=== PATIENT | male | born 1950 | race Caucasian/White ===

== ENCOUNTER 2021-11-03 11:06 | Inpatient (IN) ==
[2021-11-03 11:49] LABS: Hemoglobin 17.1 g/dL (12.9-16.9); Mean Corpuscular HGB Conc 33.5 g/dL (31.6-35.5); Mean Corpuscular Hemoglobin 30.6 pg (28.0-33.3); Mean Corpuscular Volume 91.4 fL (83.0-100.0); Platelet Count 186 K/mcL (140-400); Red Blood Count 5.58 M/mcL (4.19-5.50)
[2021-11-03 11:57] LABS: INR 1.1; Prothrombin Time 12.7 Seconds (9.4-12.1)
[2021-11-03 11:59] LABS: Activated Partial Thrombo Time 32.9 Seconds (26.0-36.0)
[2021-11-03 12:03] LABS: Acetaminophen < 10 mcg/mL (10-20); Alanine Aminotransferase 22 Units/L (7-52); Albumin 4.2 g/dL (3.5-5.7); Albumin/Globulin Ratio 1.8 (1.1-2.2); Alkaline Phosphatase 61 Units/L (34-104); Aspartate Amino Transferase 29 Units/L (13-39); BUN/Creatinine Ratio 15 (6-26); Bilirubin,Direct 0.4 mg/dL (0.0-0.2); Bilirubin,Indirect 1.3 mg/dL (0.0-1.0); Bilirubin,Total 1.7 mg/dL (0.3-1.0); Blood Urea Nitrogen 16 mg/dL (8-23); Calcium 9.7 mg/dL (8.6-10.3); Carbon Dioxide 26 mEq/L (23-29); Chloride 98 mEq/L (98-107); Ethanol < 10 mg/dL (Less than 10); Globulin 2.4 g/dL (2.4-3.5); Glucose 87 mg/dL (70-105); Osmolality,Calculated 281 (280-300); Potassium 3.4 mEq/L (3.5-5.1); Salicylate < 2.5 mg/dL (15.0-30.0); Sodium 135 mEq/L (136-145); Total Protein 6.6 g/dL (6.4-8.9); eGFR For African Americans > 60 (> 60); eGFR For Non-African Americans > 60 (> 60)
[2021-11-03 12:10] LABS: Bilirubin,Urine Negative (Negative); Blood,Urine Negative (Negative); Clarity,Urine Turbid (Clear); Color,Urine Yellow (Yellow); Glucose,Urine (UA) Normal (Normal); Hyaline Casts,Urine Many per lpf (None Seen); Ketones,Urine Trace mg/dL (Negative); Leukocyte Esterase,Urine Negative (Negative); Mucus,Urine Moderate per lpf (None-Few); Nitrite,Urine Negative (Negative); PH,Urine 5.5 pH Units (5.0-8.0); Protein,Urine 30 mg/dL (Neg-Trace); RBC,Urine 0-3 per hpf (0-3); Specific Gravity,Urine 1.024 (1.010-1.025); Squamous Epithelial Cell,Urine Few per hpf (None-Few)
[2021-11-03 12:15] LABS: Reactive Lymphocytes Present (Not Present)
[2021-11-03 12:16] LABS: Platelet Estimate Normal (Normal); Smudge Cells Present (Not Present)
[2021-11-03 12:36] LABS: Amphetamine Screen,Urine Negative ng/mL (Cutoff=1000); Barbiturate Screen,Urine Negative ng/mL (Cutoff=200); Benzodiazepines Screen,Urine Negative ng/mL (Cutoff=200); Cannabinoid Screen,Urine Negative ng/mL (Cutoff = 50); Cocaine Screen,Urine Negative ng/mL (Cutoff= 300); Opiate Screen,Urine Negative ng/mL (Cutoff=300); Phencyclidine Screen,Urine Negative ng/mL (Cutoff=25)
[2021-11-03] MEDS ORDERED: Naloxone 0.4 MG/ML INJ IVP PRN (17:41)
[2021-11-03] MEDS ORDERED: Ondansetron ODT 4 MG TAB.RAPDIS SL PRN (17:41)
[2021-11-03] MEDS: cefTRIAXone 1,000 MG in 0.9 % Sodium Chloride 10 ML IVP SCH (22:55)
[2021-11-03] MEDS: OLANZapine 5 MG TAB.RAPDIS PO SCH (23:01)
[2021-11-04] MEDS: Ringers Solution, Lactated 1,000 ML IVC SCH (00:14)
[2021-11-04] MEDS ORDERED: Haloperidol Lactate 5 MG/ML VIAL IM ONE (01:44)
[2021-11-04] MEDS: *HR* Enoxaparin 40 MG/0.4 ML SYRINGE SQ SCH (06:16)
[2021-11-04 06:48] LABS: Basophils # 0.1 K/mcL (0.0-0.2); Basophils % 0.3 %; Eosinophils % 0.2 %; Hematocrit 49.7 % (37.5-50.1); Hemoglobin 16.3 g/dL (12.9-16.9); Immature Granulocytes % 0.2 % (0-4); Lymphocytes # 10.5 K/mcL (0.6-4.6); Lymphocytes % 63.7 %; Mean Corpuscular HGB Conc 32.8 g/dL (31.6-35.5); Mean Corpuscular Hemoglobin 30.2 pg (28.0-33.3); Mean Platelet Volume 9.9 fL (9.4-12.4); Monocytes # 0.9 K/mcL (0.0-1.3); Monocytes % 5.4 %; Nucleated Red Blood Cells 0.1 /100 WBC (0); Platelet Count 157 K/mcL (140-400); Segmented Neutrophils % 30.2 %; White Blood Count 16.5 K/mcL (4.3-11.1)
[2021-11-04 07:07] LABS: Alanine Aminotransferase 21 Units/L (7-52); Albumin 3.8 g/dL (3.5-5.7); Albumin/Globulin Ratio 1.3 (1.1-2.2); Alkaline Phosphatase 55 Units/L (34-104); Aspartate Amino Transferase 36 Units/L (13-39); BUN/Creatinine Ratio 16 (6-26); Bilirubin,Total 1.2 mg/dL (0.3-1.0); Blood Urea Nitrogen 14 mg/dL (8-23); Calcium 8.9 mg/dL (8.6-10.3); Carbon Dioxide 30 mEq/L (23-29); Chloride 102 mEq/L (98-107); Chol/HDL Ratio 3.4 (0-4.9); Cholesterol 124 mg/dL (< 200); Globulin 2.9 g/dL (2.4-3.5); Glucose 87 mg/dL (70-105); HDL Cholesterol 36 mg/dL (40-59); LDL Cholesterol,Calculated 69 mg/dL (< 100); Magnesium 1.9 mg/dL (1.6-2.6); Osmolality,Calculated 286 (280-300); Phosphorous 1.9 mg/dL (2.7-4.5); Potassium 3.1 mEq/L (3.5-5.1); Sodium 138 mEq/L (136-145); Total Protein 6.7 g/dL (6.4-8.9); Triglycerides 95 mg/dL (< 150); eGFR For African Americans > 60 (> 60); eGFR For Non-African Americans > 60 (> 60)
[2021-11-04] MEDS: cefTRIAXone 1,000 MG in 0.9 % Sodium Chloride 10 ML IVP SCH (09:15)
[2021-11-04] MEDS ORDERED: Potassium Phosphate 44 MEQ in 0.9 % Sodium Chloride 250 ML IVPB ONE (12:13)
[2021-11-04] MEDS ORDERED: Acetaminophen 325 MG TABLET PO PRN (15:01)
[2021-11-04] MEDS ORDERED: *HR* LORazepam 2 MG/ML VIAL IVP STA (18:29)
[2021-11-04] MEDS ORDERED: *HR* LORazepam 2 MG/ML VIAL IM STA (18:39)
[2021-11-04] MEDS: OLANZapine 5 MG TAB.RAPDIS PO SCH (21:05)
[2021-11-05 05:06] LABS: Basophils # 0.1 K/mcL (0.0-0.2); Basophils % 0.3 %; Eosinophils # 0.1 K/mcL (0.0-0.6); Eosinophils % 0.4 %; Hematocrit 51.4 % (37.5-50.1); Hemoglobin 16.9 g/dL (12.9-16.9); Immature Granulocytes % 0.2 % (0-4); Lymphocytes # 12.7 K/mcL (0.6-4.6); Lymphocytes % 62.6 %; Mean Corpuscular HGB Conc 32.9 g/dL (31.6-35.5); Mean Corpuscular Hemoglobin 30.4 pg (28.0-33.3); Mean Corpuscular Volume 92.4 fL (83.0-100.0); Mean Platelet Volume 10.3 fL (9.4-12.4); Monocytes # 1.2 K/mcL (0.0-1.3); Monocytes % 5.9 %; Neutrophils # 6.2 K/mcL (1.6-8.9); Platelet Count 170 K/mcL (140-400); Red Blood Count 5.56 M/mcL (4.19-5.50); Segmented Neutrophils % 30.6 %; White Blood Count 20.2 K/mcL (4.3-11.1)
[2021-11-05 05:29] LABS: BUN/Creatinine Ratio 14 (6-26); Blood Urea Nitrogen 10 mg/dL (8-23); Calcium 9.5 mg/dL (8.6-10.3); Carbon Dioxide 28 mEq/L (23-29); Chloride 104 mEq/L (98-107); Glucose 95 mg/dL (70-105); Magnesium 1.9 mg/dL (1.6-2.6); Osmolality,Calculated 293 (280-300); Phosphorous 3.4 mg/dL (2.7-4.5); Potassium 3.8 mEq/L (3.5-5.1); Sodium 142 mEq/L (136-145); eGFR For African Americans > 60 (> 60); eGFR For Non-African Americans > 60 (> 60)
[2021-11-05] MEDS: *HR* Enoxaparin 40 MG/0.4 ML SYRINGE SQ SCH (05:52)
[2021-11-05] MEDS ORDERED: QUEtiapine Fumarate 25 MG TABLET PO SCH (09:00)
[2021-11-05] MEDS: cefTRIAXone 1,000 MG in 0.9 % Sodium Chloride 10 ML IVP SCH (10:25)
[2021-11-05] MEDS: 0.9 % Sodium Chloride 1,000 ML IVC SCH (10:26)
[2021-11-05] MEDS ORDERED: *HR* LORazepam 2 MG/ML VIAL IVP PRN ×2 (17:30)
[2021-11-05] MEDS: QUEtiapine Fumarate 25 MG TABLET PO SCH (18:11)
[2021-11-05] MEDS: Ringers Solution, Lactated 1,000 ML IVC SCH (18:43)
[2021-11-06] MEDS: 0.9 % Sodium Chloride 1,000 ML IVC SCH (01:49)
[2021-11-06 04:37] LABS: Basophils # 0.1 K/mcL (0.0-0.2); Basophils % 0.4 %; Eosinophils # 0.1 K/mcL (0.0-0.6); Eosinophils % 0.5 %; Hematocrit 49.6 % (37.5-50.1); Hemoglobin 16.1 g/dL (12.9-16.9); Immature Granulocytes % 0.2 % (0-4); Lymphocytes # 11.6 K/mcL (0.6-4.6); Lymphocytes % 63.9 %; Mean Corpuscular HGB Conc 32.5 g/dL (31.6-35.5); Mean Corpuscular Hemoglobin 29.9 pg (28.0-33.3); Mean Platelet Volume 10.1 fL (9.4-12.4); Monocytes # 1.1 K/mcL (0.0-1.3); Monocytes % 5.9 %; Neutrophils # 5.3 K/mcL (1.6-8.9); Platelet Count 179 K/mcL (140-400); Red Blood Count 5.39 M/mcL (4.19-5.50); Red Cell Distribution Width 12.9 % (11.5-14.5); Segmented Neutrophils % 29.1 %; White Blood Count 18.2 K/mcL (4.3-11.1)
[2021-11-06 04:56] LABS: Alanine Aminotransferase 21 Units/L (7-52); Albumin 3.7 g/dL (3.5-5.7); Albumin/Globulin Ratio 1.4 (1.1-2.2); Alkaline Phosphatase 55 Units/L (34-104); Aspartate Amino Transferase 29 Units/L (13-39); BUN/Creatinine Ratio 16 (6-26); Bilirubin,Direct 0.4 mg/dL (0.0-0.2); Bilirubin,Indirect 0.7 mg/dL (0.0-1.0); Bilirubin,Total 1.1 mg/dL (0.3-1.0); Blood Urea Nitrogen 10 mg/dL (8-23); Calcium 9.3 mg/dL (8.6-10.3); Carbon Dioxide 28 mEq/L (23-29); Chloride 106 mEq/L (98-107); Globulin 2.7 g/dL (2.4-3.5); Glucose 99 mg/dL (70-105); Magnesium 1.9 mg/dL (1.6-2.6); Osmolality,Calculated 293 (280-300); Phosphorous 3.3 mg/dL (2.7-4.5); Potassium 3.4 mEq/L (3.5-5.1); Sodium 142 mEq/L (136-145); Total Protein 6.4 g/dL (6.4-8.9); eGFR For African Americans > 60 (> 60); eGFR For Non-African Americans > 60 (> 60)
[2021-11-06] MEDS: *HR* Enoxaparin 40 MG/0.4 ML SYRINGE SQ SCH (05:08)
[2021-11-06] MEDS ORDERED: Potassium Chloride Elixir 20 MEQ/15 ML UDC PO ONE (08:04)
[2021-11-06] MEDS: Thiamine (B-1) 100 MG TABLET PO SCH (08:42)
[2021-11-06] MEDS: Vitamin B Complex/Vit C/Vit E 1 EACH TABLET PO SCH (08:42)
[2021-11-06] MEDS: Folic Acid 1 MG TABLET PO SCH (08:42)
[2021-11-06] MEDS: cefTRIAXone 1,000 MG in 0.9 % Sodium Chloride 10 ML IVP SCH (08:42)
[2021-11-06] MEDS ORDERED: Metoprolol XL (24 HR) Succ 25 MG TAB.ER.24H PO SCH (09:00)
[2021-11-06] MEDS ORDERED: amLODIPine 5 MG TABLET PO SCH (09:00)
[2021-11-06] MEDS: *HR* LORazepam 2 MG/ML VIAL IVP PRN ×2 (12:47→23:52)
[2021-11-06] MEDS: QUEtiapine Fumarate 25 MG TABLET PO SCH (17:37)
[2021-11-07 02:49] LABS: Basophils # 0.1 K/mcL (0.0-0.2); Basophils % 0.3 %; Eosinophils # 0.2 K/mcL (0.0-0.6); Eosinophils % 1.1 %; Hematocrit 48.3 % (37.5-50.1); Hemoglobin 16.1 g/dL (12.9-16.9); Immature Granulocytes % 0.3 % (0-4); Lymphocytes % 65.7 %; Mean Corpuscular HGB Conc 33.3 g/dL (31.6-35.5); Mean Corpuscular Hemoglobin 30.5 pg (28.0-33.3); Mean Corpuscular Volume 91.5 fL (83.0-100.0); Mean Platelet Volume 10.2 fL (9.4-12.4); Monocytes % 5.3 %; Neutrophils # 5.4 K/mcL (1.6-8.9); Platelet Count 179 K/mcL (140-400); Red Blood Count 5.28 M/mcL (4.19-5.50); Red Cell Distribution Width 12.9 % (11.5-14.5); Segmented Neutrophils % 27.3 %; White Blood Count 19.8 K/mcL (4.3-11.1)
[2021-11-07 02:50] LABS: Monocytes # 1.1 K/mcL (0.0-1.3)
[2021-11-07 03:46] LABS: BUN/Creatinine Ratio 17 (6-26); Blood Urea Nitrogen 11 mg/dL (8-23); Calcium 9.3 mg/dL (8.6-10.3); Carbon Dioxide 26 mEq/L (23-29); Chloride 105 mEq/L (98-107); Glucose 103 mg/dL (70-105); Osmolality,Calculated 290 (280-300); Phosphorous 3.5 mg/dL (2.7-4.5); Potassium 3.5 mEq/L (3.5-5.1); Sodium 140 mEq/L (136-145); eGFR For African Americans > 60 (> 60); eGFR For Non-African Americans > 60 (> 60)
[2021-11-07 03:47] LABS: Albumin 3.6 g/dL (3.5-5.7); Albumin/Globulin Ratio 1.3 (1.1-2.2); Bilirubin,Direct 0.5 mg/dL (0.0-0.2); Bilirubin,Indirect 1.2 mg/dL (0.0-1.0); Bilirubin,Total 1.7 mg/dL (0.3-1.0); Globulin 2.8 g/dL (2.4-3.5); Total Protein 6.4 g/dL (6.4-8.9)
[2021-11-07] MEDS: *HR* Enoxaparin 40 MG/0.4 ML SYRINGE SQ SCH (05:26)
[2021-11-07] MEDS ORDERED: *HR* LORazepam 2 MG/ML VIAL IVP PRN (07:43)
[2021-11-07] MEDS: Folic Acid 1 MG TABLET PO SCH (09:25)
[2021-11-07] MEDS: Vitamin B Complex/Vit C/Vit E 1 EACH TABLET PO SCH (09:25)
[2021-11-07] MEDS: amLODIPine 5 MG TABLET PO SCH (09:25)
[2021-11-07] MEDS: Thiamine (B-1) 100 MG TABLET PO SCH (09:25)
[2021-11-07] MEDS: QUEtiapine Fumarate 25 MG TABLET PO SCH (17:18)
[2021-11-08] MEDS ORDERED: Acetaminophen IV 1,000 MG/100 ML BAG IVPB ONE (00:40)
[2021-11-08] MEDS: *HR* Enoxaparin 40 MG/0.4 ML SYRINGE SQ SCH (05:28)
[2021-11-08 06:22] LABS: Basophils # 0.1 K/mcL (0.0-0.2); Basophils % 0.4 %; Eosinophils # 0.3 K/mcL (0.0-0.6); Eosinophils % 1.2 %; Hematocrit 50.6 % (37.5-50.1); Hemoglobin 16.1 g/dL (12.9-16.9); Immature Granulocytes % 0.2 % (0-4); Lymphocytes % 69.2 %; Mean Corpuscular HGB Conc 31.8 g/dL (31.6-35.5); Mean Corpuscular Hemoglobin 29.5 pg (28.0-33.3); Mean Corpuscular Volume 92.7 fL (83.0-100.0); Mean Platelet Volume 10.4 fL (9.4-12.4); Monocytes % 4.6 %; Neutrophils # 5.3 K/mcL (1.6-8.9); Platelet Count 189 K/mcL (140-400); Red Blood Count 5.46 M/mcL (4.19-5.50); Segmented Neutrophils % 24.4 %; White Blood Count 21.6 K/mcL (4.3-11.1)
[2021-11-08 06:36] LABS: BUN/Creatinine Ratio 26 (6-26); Blood Urea Nitrogen 18 mg/dL (8-23); Calcium 9.7 mg/dL (8.6-10.3); Carbon Dioxide 24 mEq/L (23-29); Chloride 105 mEq/L (98-107); Glucose 111 mg/dL (70-105); Osmolality,Calculated 293 (280-300); Potassium 3.3 mEq/L (3.5-5.1); Sodium 140 mEq/L (136-145); eGFR For African Americans > 60 (> 60); eGFR For Non-African Americans > 60 (> 60)
[2021-11-08] MEDS ORDERED: Potassium Chloride Elixir 20 MEQ/15 ML UDC PO ONE (09:00)
[2021-11-08] MEDS: Piperacillin/Tazobactam 3.375 GM in 0.9 % Sodium Chloride Mini Bag 100 ML IVPB SCH ×2 (09:03→16:28)
[2021-11-08] MEDS: Folic Acid 1 MG TABLET PO SCH (09:04)
[2021-11-08] MEDS: Thiamine (B-1) 100 MG TABLET PO SCH (09:04)
[2021-11-08] MEDS: amLODIPine 5 MG TABLET PO SCH (09:04)
[2021-11-08] MEDS: Vitamin B Complex/Vit C/Vit E 1 EACH TABLET PO SCH (09:04)
[2021-11-08 10:12] LABS: Adenovirus Not Detected (Not Detect); Bordetella Pertussis Not Detected (Not Detect); Chlamydophila pneumoniae Not Detected (Not Detect); Coronavirus 229E Not Detected (Not Detect); Coronavirus HKU1 Not Detected (Not Detect); Coronavirus NL63 Not Detected (Not Detect); Coronavirus OC43 Not Detected (Not Detect); Human Metapneumovirus Not Detected (Not Detect); Human Rhinovirus/Enterovirus Not Detected (Not Detect); Influenza A Subtype 2009 H1 Not Detected (Not Detect); Influenza B Not Detected (Not Detect); Mycoplasma pneumoniae Not Detected (Not Detect); Parainfluenza Virus 1 Not Detected (Not Detect); Parainfluenza Virus 2 Not Detected (Not Detect); Parainfluenza Virus 3 Not Detected (Not Detect); Parainfluenza Virus 4 Not Detected (Not Detect); Respiratory Syncytial Virus Not Detected (Not Detect); SARS-CoV-2 Not Detected (Not Detect)
[2021-11-08 14:53] LABS: Hematocrit 48.4 % (37.5-50.1); Hemoglobin 15.8 g/dL (12.9-16.9); Immature Granulocytes % 0.2 % (0-4); Lymphocytes % 72.2 %; Mean Corpuscular HGB Conc 32.6 g/dL (31.6-35.5); Mean Corpuscular Hemoglobin 30.2 pg (28.0-33.3); Mean Corpuscular Volume 92.5 fL (83.0-100.0); Mean Platelet Volume 10.3 fL (9.4-12.4); Platelet Count 230 K/mcL (140-400); Red Blood Count 5.23 M/mcL (4.19-5.50)
[2021-11-08 14:54] LABS: Basophils # 0.1 K/mcL (0.0-0.2); Basophils % 0.4 %; Eosinophils # 0.4 K/mcL (0.0-0.6); Eosinophils % 1.3 %; Lymphocytes # 19.5 K/mcL (0.6-4.6); Monocytes # 1.1 K/mcL (0.0-1.3); Monocytes % 3.9 %; Neutrophils # 5.9 K/mcL (1.6-8.9); Nucleated Red Blood Cells 0.1 /100 WBC (0); Platelet Estimate Normal (Normal)
[2021-11-08] MEDS: QUEtiapine Fumarate 25 MG TABLET PO SCH (18:56)
[2021-11-09] MEDS: Piperacillin/Tazobactam 3.375 GM in 0.9 % Sodium Chloride Mini Bag 100 ML IVPB SCH ×3 (00:09→15:46)
[2021-11-09 03:02] LABS: Basophils # 0.1 K/mcL (0.0-0.2); Basophils % 0.4 %; Eosinophils # 0.4 K/mcL (0.0-0.6); Hematocrit 46.4 % (37.5-50.1); Hemoglobin 15.5 g/dL (12.9-16.9); Immature Granulocytes % 0.2 % (0-4); Lymphocytes # 13.5 K/mcL (0.6-4.6); Lymphocytes % 66.7 %; Mean Corpuscular HGB Conc 33.4 g/dL (31.6-35.5); Mean Corpuscular Hemoglobin 30.8 pg (28.0-33.3); Mean Corpuscular Volume 92.2 fL (83.0-100.0); Mean Platelet Volume 10.3 fL (9.4-12.4); Monocytes % 4.8 %; Neutrophils # 5.3 K/mcL (1.6-8.9); Platelet Count 185 K/mcL (140-400); Red Blood Count 5.03 M/mcL (4.19-5.50); Segmented Neutrophils % 25.9 %; White Blood Count 20.3 K/mcL (4.3-11.1)
[2021-11-09 03:21] LABS: BUN/Creatinine Ratio 26 (6-26); Blood Urea Nitrogen 19 mg/dL (8-23); Calcium 9.4 mg/dL (8.6-10.3); Carbon Dioxide 26 mEq/L (23-29); Chloride 109 mEq/L (98-107); Glucose 109 mg/dL (70-105); Osmolality,Calculated 299 (280-300); Potassium 3.5 mEq/L (3.5-5.1); Sodium 143 mEq/L (136-145); eGFR For African Americans > 60 (> 60); eGFR For Non-African Americans > 60 (> 60)
[2021-11-09 03:22] LABS: Albumin 3.5 g/dL (3.5-5.7); Albumin/Globulin Ratio 1.3 (1.1-2.2); Bilirubin,Direct 0.5 mg/dL (0.0-0.2); Bilirubin,Indirect 0.9 mg/dL (0.0-1.0); Bilirubin,Total 1.4 mg/dL (0.3-1.0); Globulin 2.7 g/dL (2.4-3.5); Total Protein 6.2 g/dL (6.4-8.9)
[2021-11-09 05:00] LABS: Platelet Estimate Normal (Normal); Reactive Lymphocytes Present (Not Present); Smudge Cells Present (Not Present)
[2021-11-09] MEDS: *HR* Enoxaparin 40 MG/0.4 ML SYRINGE SQ SCH (05:19)
[2021-11-09] MEDS: Thiamine (B-1) 100 MG TABLET PO SCH (08:16)
[2021-11-09] MEDS: Folic Acid 1 MG TABLET PO SCH (08:16)
[2021-11-09] MEDS: amLODIPine 5 MG TABLET PO SCH (08:16)
[2021-11-09] MEDS: Vitamin B Complex/Vit C/Vit E 1 EACH TABLET PO SCH (08:16)
[2021-11-09] MEDS ORDERED: diazePAM 5 MG TABLET PO PRN (10:20)
[2021-11-09] MEDS: QUEtiapine Fumarate 25 MG TABLET PO SCH (17:11)
[2021-11-09] MEDS ORDERED: *HR* LORazepam 2 MG/ML VIAL IVP PRN (21:32)
[2021-11-10] MEDS: Piperacillin/Tazobactam 3.375 GM in 0.9 % Sodium Chloride Mini Bag 100 ML IVPB SCH ×3 (00:02→19:33)
[2021-11-10] MEDS: *HR* LORazepam 2 MG/ML VIAL IVP PRN (01:30)
[2021-11-10 03:36] LABS: Basophils # 0.1 K/mcL (0.0-0.2); Basophils % 0.4 %; Eosinophils # 0.5 K/mcL (0.0-0.6); Eosinophils % 1.9 %; Hematocrit 50.6 % (37.5-50.1); Hemoglobin 16.4 g/dL (12.9-16.9); Immature Granulocytes % 0.3 % (0-4); Lymphocytes # 15.6 K/mcL (0.6-4.6); Lymphocytes % 62.9 %; Mean Corpuscular HGB Conc 32.4 g/dL (31.6-35.5); Mean Corpuscular Hemoglobin 29.9 pg (28.0-33.3); Mean Corpuscular Volume 92.2 fL (83.0-100.0); Mean Platelet Volume 10.7 fL (9.4-12.4); Monocytes # 1.1 K/mcL (0.0-1.3); Monocytes % 4.4 %; Neutrophils # 7.5 K/mcL (1.6-8.9); Platelet Count 189 K/mcL (140-400); Red Blood Count 5.49 M/mcL (4.19-5.50); Red Cell Distribution Width 12.9 % (11.5-14.5); Segmented Neutrophils % 30.1 %; White Blood Count 24.8 K/mcL (4.3-11.1)
[2021-11-10 04:35] LABS: Alanine Aminotransferase 36 Units/L (7-52); Albumin 3.7 g/dL (3.5-5.7); Albumin/Globulin Ratio 1.3 (1.1-2.2); Alkaline Phosphatase 63 Units/L (34-104); Aspartate Amino Transferase 56 Units/L (13-39); BUN/Creatinine Ratio 29 (6-26); Bilirubin,Direct 0.4 mg/dL (0.0-0.2); Bilirubin,Indirect 1.1 mg/dL (0.0-1.0); Bilirubin,Total 1.5 mg/dL (0.3-1.0); Blood Urea Nitrogen 17 mg/dL (8-23); Calcium 9.2 mg/dL (8.6-10.3); Carbon Dioxide 18 mEq/L (23-29); Chloride 106 mEq/L (98-107); Globulin 2.8 g/dL (2.4-3.5); Glucose 93 mg/dL (70-105); Osmolality,Calculated 297 (280-300); Potassium 3.8 mEq/L (3.5-5.1); Sodium 143 mEq/L (136-145); Total Protein 6.5 g/dL (6.4-8.9); eGFR For African Americans > 60 (> 60); eGFR For Non-African Americans > 60 (> 60)
[2021-11-10] MEDS: amLODIPine 5 MG TABLET PO SCH (09:33)
[2021-11-10] MEDS: Thiamine (B-1) 100 MG TABLET PO SCH (09:33)
[2021-11-10] MEDS: Vitamin B Complex/Vit C/Vit E 1 EACH TABLET PO SCH (09:33)
[2021-11-10] MEDS: Folic Acid 1 MG TABLET PO SCH (09:34)
[2021-11-10] MEDS: QUEtiapine Fumarate 25 MG TABLET PO SCH (18:12)
[2021-11-11 04:03] LABS: Basophils # 0.1 K/mcL (0.0-0.2); Basophils % 0.3 %; Eosinophils # 0.5 K/mcL (0.0-0.6); Eosinophils % 1.9 %; Hemoglobin 15.4 g/dL (12.9-16.9); Immature Granulocytes % 0.3 % (0-4); Lymphocytes # 16.5 K/mcL (0.6-4.6); Lymphocytes % 69.3 %; Mean Corpuscular HGB Conc 32.8 g/dL (31.6-35.5); Mean Corpuscular Hemoglobin 30.5 pg (28.0-33.3); Mean Corpuscular Volume 93.1 fL (83.0-100.0); Mean Platelet Volume 10.8 fL (9.4-12.4); Neutrophils # 5.8 K/mcL (1.6-8.9); Nucleated Red Blood Cells 0.1 /100 WBC (0); Platelet Count 210 K/mcL (140-400); Red Blood Count 5.05 M/mcL (4.19-5.50); Red Cell Distribution Width 13.1 % (11.5-14.5); Segmented Neutrophils % 24.2 %; White Blood Count 23.8 K/mcL (4.3-11.1)
[2021-11-11 04:25] LABS: Albumin 3.6 g/dL (3.5-5.7); Albumin/Globulin Ratio 1.2 (1.1-2.2); Bilirubin,Direct 0.4 mg/dL (0.0-0.2); Bilirubin,Indirect 0.9 mg/dL (0.0-1.0); Bilirubin,Total 1.3 mg/dL (0.3-1.0); Globulin 2.9 g/dL (2.4-3.5); Total Protein 6.5 g/dL (6.4-8.9)
[2021-11-11 04:26] LABS: BUN/Creatinine Ratio 27 (6-26); Blood Urea Nitrogen 17 mg/dL (8-23); Calcium 9.3 mg/dL (8.6-10.3); Carbon Dioxide 25 mEq/L (23-29); Chloride 108 mEq/L (98-107); Glucose 86 mg/dL (70-105); Osmolality,Calculated 293 (280-300); Potassium 3.4 mEq/L (3.5-5.1); Sodium 141 mEq/L (136-145); eGFR For African Americans > 60 (> 60); eGFR For Non-African Americans > 60 (> 60)
[2021-11-11] MEDS: Piperacillin/Tazobactam 3.375 GM in 0.9 % Sodium Chloride Mini Bag 100 ML IVPB SCH ×3 (04:40→20:24)
[2021-11-11] MEDS: Folic Acid 1 MG TABLET PO SCH (09:35)
[2021-11-11] MEDS: Thiamine (B-1) 100 MG TABLET PO SCH (09:35)
[2021-11-11] MEDS: amLODIPine 5 MG TABLET PO SCH (09:35)
[2021-11-11] MEDS: Vitamin B Complex/Vit C/Vit E 1 EACH TABLET PO SCH (09:35)
[2021-11-11] MEDS ORDERED: Potassium Chloride Elixir 20 MEQ/15 ML UDC PO ONE (12:05)
[2021-11-11] MEDS: QUEtiapine Fumarate 25 MG TABLET PO SCH (16:12)
[2021-11-11] MEDS: *HR* LORazepam 2 MG/ML VIAL IVP PRN (22:46)
[2021-11-12] MEDS: Piperacillin/Tazobactam 3.375 GM in 0.9 % Sodium Chloride Mini Bag 100 ML IVPB SCH ×3 (04:33→19:53)
[2021-11-12] MEDS: *HR* Enoxaparin 40 MG/0.4 ML SYRINGE SQ SCH (05:41)
[2021-11-12] MEDS: amLODIPine 5 MG TABLET PO SCH (08:38)
[2021-11-12] MEDS: Vitamin B Complex/Vit C/Vit E 1 EACH TABLET PO SCH (08:39)
[2021-11-12] MEDS: Thiamine (B-1) 100 MG TABLET PO SCH (08:39)
[2021-11-12] MEDS: Folic Acid 1 MG TABLET PO SCH (08:39)
[2021-11-12] MEDS: QUEtiapine Fumarate 25 MG TABLET PO SCH (17:22)
[2021-11-12] MEDS: *HR* LORazepam 2 MG/ML VIAL IVP PRN (20:51)
[2021-11-13] MEDS: Piperacillin/Tazobactam 3.375 GM in 0.9 % Sodium Chloride Mini Bag 100 ML IVPB SCH (04:52)
[2021-11-13] MEDS: *HR* Enoxaparin 40 MG/0.4 ML SYRINGE SQ SCH (05:00)
[2021-11-13 05:45] LABS: Eosinophils % 1.4 %; Lymphocytes % 70.3 %; Mean Corpuscular Hemoglobin 30.3 pg (28.0-33.3); Mean Corpuscular Volume 93.1 fL (83.0-100.0)
[2021-11-13 05:46] LABS: Basophils # 0.1 K/mcL (0.0-0.2); Basophils % 0.5 %; Eosinophils # 0.4 K/mcL (0.0-0.6); Hematocrit 48.5 % (37.5-50.1); Hemoglobin 15.8 g/dL (12.9-16.9); Immature Granulocytes % 0.2 % (0-4); Lymphocytes # 18.6 K/mcL (0.6-4.6); Mean Corpuscular HGB Conc 32.6 g/dL (31.6-35.5); Monocytes # 1.2 K/mcL (0.0-1.3); Monocytes % 4.4 %; Neutrophils # 6.2 K/mcL (1.6-8.9); Platelet Count 234 K/mcL (140-400); Red Blood Count 5.21 M/mcL (4.19-5.50); Red Cell Distribution Width 13.1 % (11.5-14.5); Segmented Neutrophils % 23.2 %; White Blood Count 26.5 K/mcL (4.3-11.1)
[2021-11-13 05:52] LABS: Platelet Estimate Normal (Normal); Reactive Lymphocytes Present (Not Present)
[2021-11-13 06:07] LABS: BUN/Creatinine Ratio 29 (6-26); Blood Urea Nitrogen 18 mg/dL (8-23); Calcium 9.6 mg/dL (8.6-10.3); Carbon Dioxide 24 mEq/L (23-29); Chloride 109 mEq/L (98-107); Glucose 102 mg/dL (70-105); Osmolality,Calculated 296 (280-300); Potassium 3.8 mEq/L (3.5-5.1); Sodium 142 mEq/L (136-145); eGFR For African Americans > 60 (> 60); eGFR For Non-African Americans > 60 (> 60)
[2021-11-13] MEDS: Vitamin B Complex/Vit C/Vit E 1 EACH TABLET PO SCH (10:31)
[2021-11-13] MEDS: amLODIPine 5 MG TABLET PO SCH (10:31)
[2021-11-13] MEDS: Folic Acid 1 MG TABLET PO SCH (10:31)
[2021-11-13] MEDS: Thiamine (B-1) 100 MG TABLET PO SCH (10:31)
[2021-11-13] MEDS: QUEtiapine Fumarate 25 MG TABLET PO SCH (18:22)
[2021-11-13] MEDS: *HR* LORazepam 2 MG/ML VIAL IVP PRN (23:16)
[2021-11-14 03:26] LABS: Basophils % 0.4 %; Mean Corpuscular HGB Conc 32.1 g/dL (31.6-35.5); Mean Corpuscular Hemoglobin 29.8 pg (28.0-33.3); Mean Platelet Volume 11.1 fL (9.4-12.4)
[2021-11-14 03:27] LABS: Basophils # 0.1 K/mcL (0.0-0.2); Eosinophils # 0.4 K/mcL (0.0-0.6); Eosinophils % 1.3 %; Hemoglobin 15.4 g/dL (12.9-16.9); Immature Granulocytes % 0.5 % (0-4); Lymphocytes # 20.8 K/mcL (0.6-4.6); Lymphocytes % 64.9 %; Mean Corpuscular Volume 92.8 fL (83.0-100.0); Monocytes # 1.4 K/mcL (0.0-1.3); Monocytes % 4.5 %; Neutrophils # 9.1 K/mcL (1.6-8.9); Platelet Count 250 K/mcL (140-400); Red Blood Count 5.17 M/mcL (4.19-5.50); Segmented Neutrophils % 28.4 %
[2021-11-14 04:07] LABS: Platelet Estimate Normal (Normal); Reactive Lymphocytes Present (Not Present); Smudge Cells Present (Not Present)
[2021-11-14 04:08] LABS: BUN/Creatinine Ratio 32 (6-26); Blood Urea Nitrogen 20 mg/dL (8-23); Calcium 9.2 mg/dL (8.6-10.3); Carbon Dioxide 19 mEq/L (23-29); Chloride 106 mEq/L (98-107); Glucose 131 mg/dL (70-105); Osmolality,Calculated 288 (280-300); Potassium 3.8 mEq/L (3.5-5.1); Sodium 137 mEq/L (136-145); eGFR For African Americans > 60 (> 60); eGFR For Non-African Americans > 60 (> 60)
[2021-11-14] MEDS: *HR* Enoxaparin 40 MG/0.4 ML SYRINGE SQ SCH (04:55)
[2021-11-14] MEDS: *HR* LORazepam 2 MG/ML VIAL IVP PRN ×2 (04:56→20:57)
[2021-11-14] MEDS: Folic Acid 1 MG TABLET PO SCH (08:45)
[2021-11-14] MEDS: Vitamin B Complex/Vit C/Vit E 1 EACH TABLET PO SCH (08:45)
[2021-11-14] MEDS: Thiamine (B-1) 100 MG TABLET PO SCH (08:45)
[2021-11-14] MEDS: amLODIPine 5 MG TABLET PO SCH (08:45)
[2021-11-14] MEDS: 0.9 % Sodium Chloride 1,000 ML IVC SCH ×2 (10:48→20:32)
[2021-11-14 14:04] LABS: Bilirubin,Urine Negative (Negative); Blood,Urine Large (Negative); Clarity,Urine Ex.Turbid (Clear); Color,Urine Orange (Yellow); Glucose,Urine (UA) Normal (Normal); Ketones,Urine Negative (Negative); Leukocyte Esterase,Urine Small (Negative); Nitrite,Urine Negative (Negative); PH,Urine 5.5 pH Units (5.0-8.0); Protein,Urine 100 mg/dL (Neg-Trace); Specific Gravity,Urine 1.024 (1.010-1.025); Urobilinogen,Urine Normal (Normal)
[2021-11-14 14:10] LABS: RBC,Urine TNTC per hpf (0-3)
[2021-11-14 14:11] LABS: Amorphous Sediment,Urine Moderate per hpf (None-Few)
[2021-11-14 14:13] LABS: Squamous Epithelial Cell,Urine Present per hpf (None-Few); WBC,Urine Present per hpf (0-3)
[2021-11-14 14:14] LABS: Mucus,Urine Present per lpf (None-Few)
[2021-11-14] MEDS: QUEtiapine Fumarate 25 MG TABLET PO SCH (17:41)
[2021-11-15 03:04] LABS: Hematocrit 39.8 % (37.5-50.1); Mean Corpuscular HGB Conc 32.7 g/dL (31.6-35.5); Mean Corpuscular Hemoglobin 30.3 pg (28.0-33.3); Mean Corpuscular Volume 92.8 fL (83.0-100.0); Mean Platelet Volume 11.5 fL (9.4-12.4); Platelet Count 222 K/mcL (140-400); Red Blood Count 4.29 M/mcL (4.19-5.50)
[2021-11-15 03:06] LABS: White Blood Count 30.3 K/mcL (4.3-11.1)
[2021-11-15 03:14] LABS: BUN/Creatinine Ratio 35 (6-26); Blood Urea Nitrogen 22 mg/dL (8-23); Calcium 9.4 mg/dL (8.6-10.3); Carbon Dioxide 30 mEq/L (23-29); Chloride 109 mEq/L (98-107); Glucose 107 mg/dL (70-105); Osmolality,Calculated 302 (280-300); Potassium 3.6 mEq/L (3.5-5.1); Sodium 144 mEq/L (136-145); eGFR For African Americans > 60 (> 60); eGFR For Non-African Americans > 60 (> 60)
[2021-11-15] MEDS: *HR* LORazepam 2 MG/ML VIAL IVP PRN ×2 (04:05→13:52)
[2021-11-15] MEDS: *HR* Enoxaparin 40 MG/0.4 ML SYRINGE SQ SCH (05:18)
[2021-11-15] MEDS: 0.9 % Sodium Chloride 1,000 ML IVC SCH ×3 (09:42→22:58)
[2021-11-15] MEDS: Folic Acid 1 MG TABLET PO SCH (09:59)
[2021-11-15] MEDS: Thiamine (B-1) 100 MG TABLET PO SCH (09:59)
[2021-11-15] MEDS: Vitamin B Complex/Vit C/Vit E 1 EACH TABLET PO SCH (09:59)
[2021-11-15] MEDS: amLODIPine 5 MG TABLET PO SCH (09:59)
[2021-11-15] MEDS ORDERED: 0.9 % Sodium Chloride 1,000 ML ONE (19:07)
[2021-11-15] MEDS ORDERED: 0.9 % Sodium Chloride 1,000 ML IV ONE (19:10)
[2021-11-15] MEDS ORDERED: levETIRAcetam 1,000 MG in 0.9 % Sodium Chloride 100 ML IVPB ONE (20:00)
[2021-11-15] MEDS: QUEtiapine Fumarate 25 MG TABLET PO SCH (21:00)
[2021-11-16] MEDS ORDERED: Amiodarone Premix 360 MG/200 ML BAG IVC ONE (00:47)
[2021-11-16] MEDS: Amiodarone Premix 360 MG/200 ML BAG IVC SCH ×2 (01:17→13:56)
[2021-11-16] MEDS: *HR* Enoxaparin 40 MG/0.4 ML SYRINGE SQ SCH (05:24)
[2021-11-16 05:49] LABS: Red Cell Distribution Width 13.2 % (11.5-14.5)
[2021-11-16 05:50] LABS: Hematocrit 38.6 % (37.5-50.1); Mean Corpuscular HGB Conc 31.1 g/dL (31.6-35.5); Mean Corpuscular Hemoglobin 29.6 pg (28.0-33.3); Mean Corpuscular Volume 95.3 fL (83.0-100.0); Mean Platelet Volume 11.5 fL (9.4-12.4); Platelet Count 244 K/mcL (140-400); Red Blood Count 4.05 M/mcL (4.19-5.50)
[2021-11-16 06:15] LABS: Troponin I 0.58 ng/mL (< 0.04)
[2021-11-16 06:17] LABS: Magnesium 2.1 mg/dL (1.6-2.6)
[2021-11-16 06:26] LABS: Lymphocytes # 22.2 K/mcL (0.6-4.6); Neutrophils # 14.8 K/mcL (1.6-8.9); Platelet Estimate Normal (Normal)
[2021-11-16 06:51] LABS: Alanine Aminotransferase 56 Units/L (7-52); Albumin 3.3 g/dL (3.5-5.7); Albumin/Globulin Ratio 1.4 (1.1-2.2); Alkaline Phosphatase 71 Units/L (34-104); Aspartate Amino Transferase 73 Units/L (13-39); BUN/Creatinine Ratio 24 (6-26); Bilirubin,Direct 0.4 mg/dL (0.0-0.2); Bilirubin,Indirect 0.6 mg/dL (0.0-1.0); Blood Urea Nitrogen 15 mg/dL (8-23); Calcium 8.4 mg/dL (8.6-10.3); Carbon Dioxide 21 mEq/L (23-29); Chloride 114 mEq/L (98-107); Globulin 2.4 g/dL (2.4-3.5); Glucose 105 mg/dL (70-105); Osmolality,Calculated 301 (280-300); Potassium 3.4 mEq/L (3.5-5.1); Sodium 145 mEq/L (136-145); Total Protein 5.7 g/dL (6.4-8.9); eGFR For African Americans > 60 (> 60); eGFR For Non-African Americans > 60 (> 60)
[2021-11-16] MEDS: QUEtiapine Fumarate 25 MG TABLET PO SCH (07:34)
[2021-11-16] MEDS: Vitamin B Complex/Vit C/Vit E 1 EACH TABLET PO SCH (07:34)
[2021-11-16] MEDS: Folic Acid 1 MG TABLET PO SCH (07:34)
[2021-11-16] MEDS: Thiamine (B-1) 100 MG TABLET PO SCH (07:34)
[2021-11-16] MEDS: amLODIPine 5 MG TABLET PO SCH (07:34)
[2021-11-16] MEDS: 0.9 % Sodium Chloride 1,000 ML IVC SCH (09:37)
[2021-11-16] MEDS ORDERED: *HR* Enoxaparin 30 MG/0.3 ML SYRINGE SQ ONE (10:01)
[2021-11-16] MEDS ORDERED: Perflutren Lipid Microsphere 1.3 ML in 0.9 % Sodium Chloride 8.7 ML IVP PRN ×2 (13:01→13:59)
[2021-11-16] MEDS ORDERED: Naloxone 0.4 MG/ML INJ IVP PRN (13:59)
[2021-11-16] MEDS ORDERED: Ondansetron ODT 4 MG TAB.RAPDIS SL PRN (13:59)
[2021-11-16] MEDS ORDERED: Acetaminophen 325 MG TABLET PO PRN (13:59)
[2021-11-16] MEDS: *HR* Enoxaparin 80 MG/0.8 ML SYRINGE SQ SCH (17:52)
[2021-11-16] MEDS ORDERED: *HR* Enoxaparin 80 MG/0.8 ML SYRINGE SQ SCH (18:00)
[2021-11-16] MEDS ORDERED: QUEtiapine Fumarate 25 MG TABLET PO SCH (21:00)
[2021-11-17] MEDS: Amiodarone Premix 360 MG/200 ML BAG IVC SCH ×3 (00:10→23:43)
[2021-11-17] MEDS: *HR* Enoxaparin 80 MG/0.8 ML SYRINGE SQ SCH ×2 (05:13→18:08)
[2021-11-17 07:20] LABS: Basophils % 0.3 %; Eosinophils % 0.1 %; Immature Granulocytes % 0.5 % (0-4); Red Cell Distribution Width 13.3 % (11.5-14.5)
[2021-11-17 07:22] LABS: Basophils # 0.1 K/mcL (0.0-0.2); Hematocrit 38.8 % (37.5-50.1); Hemoglobin 12.5 g/dL (12.9-16.9); Lymphocytes % 60.5 %; Mean Corpuscular HGB Conc 32.2 g/dL (31.6-35.5); Mean Corpuscular Hemoglobin 29.9 pg (28.0-33.3); Mean Corpuscular Volume 92.8 fL (83.0-100.0); Mean Platelet Volume 11.9 fL (9.4-12.4); Monocytes # 1.3 K/mcL (0.0-1.3); Monocytes % 3.6 %; Neutrophils # 12.7 K/mcL (1.6-8.9); Platelet Count 230 K/mcL (140-400); Red Blood Count 4.18 M/mcL (4.19-5.50)
[2021-11-17 07:27] LABS: White Blood Count 36.3 K/mcL (4.3-11.1)
[2021-11-17 07:29] LABS: INR 1.2; Prothrombin Time 13.9 Seconds (9.4-12.1)
[2021-11-17 07:31] LABS: Activated Partial Thrombo Time 36.6 Seconds (26.0-36.0)
[2021-11-17 08:00] LABS: Alanine Aminotransferase 57 Units/L (7-52); Albumin 3.1 g/dL (3.5-5.7); Albumin/Globulin Ratio 1.2 (1.1-2.2); Alkaline Phosphatase 71 Units/L (34-104); Aspartate Amino Transferase 84 Units/L (13-39); BUN/Creatinine Ratio 23 (6-26); Blood Urea Nitrogen 14 mg/dL (8-23); Carbon Dioxide 22 mEq/L (23-29); Chloride 114 mEq/L (98-107); Globulin 2.6 g/dL (2.4-3.5); Glucose 121 mg/dL (70-105); Osmolality,Calculated 302 (280-300); Phosphorous 2.1 mg/dL (2.7-4.5); Potassium 3.3 mEq/L (3.5-5.1); Sodium 145 mEq/L (136-145); Total Protein 5.7 g/dL (6.4-8.9); eGFR For African Americans > 60 (> 60); eGFR For Non-African Americans > 60 (> 60)
[2021-11-17] MEDS: Vitamin B Complex/Vit C/Vit E 1 EACH TABLET PO SCH (08:02)
[2021-11-17] MEDS: amLODIPine 5 MG TABLET PO SCH (08:03)
[2021-11-17] MEDS: QUEtiapine Fumarate 25 MG TABLET PO SCH (08:03)
[2021-11-17] MEDS: Folic Acid 1 MG TABLET PO SCH (08:03)
[2021-11-17] MEDS: Thiamine (B-1) 100 MG TABLET PO SCH (08:03)
[2021-11-17 17:29] LABS: BUN/Creatinine Ratio 22 (6-26); Blood Urea Nitrogen 15 mg/dL (8-23); Calcium 9.2 mg/dL (8.6-10.3); Carbon Dioxide 27 mEq/L (23-29); Chloride 111 mEq/L (98-107); Glucose 140 mg/dL (70-105); Osmolality,Calculated 303 (280-300); Potassium 3.1 mEq/L (3.5-5.1); Sodium 145 mEq/L (136-145); eGFR For African Americans > 60 (> 60); eGFR For Non-African Americans > 60 (> 60)
[2021-11-17] MEDS ORDERED: *HR* HYDROcodone/Acet 5/325 mg TABLET PO PRN (18:04)
[2021-11-18 04:09] LABS: Eosinophils % 0.1 %; Hemoglobin 11.7 g/dL (12.9-16.9); Immature Granulocytes % 0.5 % (0-4); Red Cell Distribution Width 13.5 % (11.5-14.5)
[2021-11-18 04:11] LABS: Basophils # 0.1 K/mcL (0.0-0.2); Basophils % 0.2 %; Lymphocytes # 24.4 K/mcL (0.6-4.6); Lymphocytes % 62.1 %; Mean Corpuscular HGB Conc 32.5 g/dL (31.6-35.5); Mean Corpuscular Hemoglobin 30.2 pg (28.0-33.3); Monocytes % 3.7 %; Platelet Count 244 K/mcL (140-400); Red Blood Count 3.87 M/mcL (4.19-5.50); Segmented Neutrophils % 33.4 %
[2021-11-18 04:25] LABS: BUN/Creatinine Ratio 24 (6-26); Blood Urea Nitrogen 17 mg/dL (8-23); Calcium 9.1 mg/dL (8.6-10.3); Carbon Dioxide 26 mEq/L (23-29); Chloride 113 mEq/L (98-107); Glucose 125 mg/dL (70-105); Magnesium 2.1 mg/dL (1.6-2.6); Osmolality,Calculated 307 (280-300); Phosphorous 2.5 mg/dL (2.7-4.5); Potassium 3.3 mEq/L (3.5-5.1); Sodium 147 mEq/L (136-145); eGFR For African Americans > 60 (> 60); eGFR For Non-African Americans > 60 (> 60)
[2021-11-18 04:40] LABS: Monocytes # 1.5 K/mcL (0.0-1.3); Neutrophils # 13.1 K/mcL (1.6-8.9)
[2021-11-18 04:41] LABS: White Blood Count 39.3 K/mcL (4.3-11.1)
[2021-11-18 04:57] LABS: Platelet Estimate Normal (Normal); Smudge Cells Present (Not Present)
[2021-11-18] MEDS: *HR* Enoxaparin 80 MG/0.8 ML SYRINGE SQ SCH (05:22)
[2021-11-18] MEDS ORDERED: Potassium Phosphate 44 MEQ in 0.9 % Sodium Chloride 250 ML IVPB ONE (07:39)
[2021-11-18] MEDS: amLODIPine 5 MG TABLET PO SCH (08:23)
[2021-11-18] MEDS: QUEtiapine Fumarate 25 MG TABLET PO SCH (08:24)
[2021-11-18] MEDS: Folic Acid 1 MG TABLET PO SCH (08:24)
[2021-11-18] MEDS: Vitamin B Complex/Vit C/Vit E 1 EACH TABLET PO SCH (08:24)
[2021-11-18] MEDS: Thiamine (B-1) 100 MG TABLET PO SCH (08:24)
[2021-11-18] MEDS: Metoprolol XL (24 HR) Succ 25 MG TAB.ER.24H PO SCH (08:24)
[2021-11-18] MEDS: *HR* LORazepam 2 MG/ML VIAL IVP PRN ×2 (08:26→17:07)
[2021-11-18] MEDS: Amiodarone Premix 360 MG/200 ML BAG IVC SCH (10:18)
[2021-11-18] MEDS: *HR* Amiodarone 200 MG TABLET PO SCH ×2 (18:55→22:07)
[2021-11-18] MEDS ORDERED: Ipratropium/Albuterol Neb 3 ML IH PRN (23:18)
[2021-11-19] MEDS: *HR* LORazepam 2 MG/ML VIAL IVP PRN ×3 (02:07→17:23)
[2021-11-19] MEDS ORDERED: Furosemide 40 MG/4 ML VIAL IVP ONE (02:32)
[2021-11-19 02:55] LABS: Red Blood Count 4.17 M/mcL (4.19-5.50); Red Cell Distribution Width 13.7 % (11.5-14.5)
[2021-11-19 02:56] LABS: Hematocrit 39.9 % (37.5-50.1); Hemoglobin 12.4 g/dL (12.9-16.9); Mean Corpuscular HGB Conc 31.1 g/dL (31.6-35.5); Mean Corpuscular Hemoglobin 29.7 pg (28.0-33.3); Mean Corpuscular Volume 95.7 fL (83.0-100.0); Mean Platelet Volume 11.8 fL (9.4-12.4); Platelet Count 304 K/mcL (140-400)
[2021-11-19 03:28] LABS: BUN/Creatinine Ratio 27 (6-26); Blood Urea Nitrogen 21 mg/dL (8-23); Calcium 9.5 mg/dL (8.6-10.3); Carbon Dioxide 27 mEq/L (23-29); Chloride 117 mEq/L (98-107); Glucose 131 mg/dL (70-105); Magnesium 2.3 mg/dL (1.6-2.6); Osmolality,Calculated 321 (280-300); Phosphorous 3.3 mg/dL (2.7-4.5); Potassium 3.6 mEq/L (3.5-5.1); Sodium 153 mEq/L (136-145); eGFR For African Americans > 60 (> 60); eGFR For Non-African Americans > 60 (> 60)
[2021-11-19 03:47] LABS: White Blood Count 45.5 K/mcL (4.3-11.1)
[2021-11-19 04:46] LABS: Hypochromasia Present (Not Present); Platelet Estimate Normal (Normal); Smudge Cells Present (Not Present)
[2021-11-19] MEDS ORDERED: *HR* Enoxaparin 40 MG/0.4 ML SYRINGE SQ SCH (06:00)
[2021-11-19 06:39] LABS: Neutrophils # 10.9 K/mcL (1.6-8.9)
[2021-11-19 06:40] LABS: Lymphocytes # 34.6 K/mcL (0.6-4.6)
[2021-11-19] MEDS ORDERED: D5% in Water 500 ML IVC SCH (07:30)
[2021-11-19] MEDS ORDERED: lisinopriL 5 MG TABLET PO SCH (09:00)
[2021-11-19] MEDS ORDERED: Aspirin 81 MG TAB.CHEW PO SCH (11:15)
[2021-11-19] MEDS: Folic Acid 1 MG TABLET PO SCH (11:34)
[2021-11-19] MEDS: amLODIPine 5 MG TABLET PO SCH (11:35)
[2021-11-19] MEDS: Thiamine (B-1) 100 MG TABLET PO SCH (11:35)
[2021-11-19] MEDS: QUEtiapine Fumarate 25 MG TABLET PO SCH (11:35)
[2021-11-19] MEDS: Vitamin B Complex/Vit C/Vit E 1 EACH TABLET PO SCH (11:35)
[2021-11-19] MEDS: Metoprolol XL (24 HR) Succ 25 MG TAB.ER.24H PO SCH (11:35)
[2021-11-19] MEDS ORDERED: *HR* LORazepam Oral Conc 2 MG/ML SL PRN (16:13)
[2021-11-19] MEDS ORDERED: Haloperidol Lactate 5 MG/ML VIAL IVP PRN (16:13)
[2021-11-19] MEDS ORDERED: Atropine Sulfate 1% 40 DROP/2 ML BOTTLE SL PRN (16:14)
[2021-11-19] MEDS: *HR* FentaNYL (PF) 100 MCG/2 ML VIAL IVP PRN ×2 (17:23→21:56)
[2021-11-20] MEDS: *HR* LORazepam 2 MG/ML VIAL IVP PRN (00:10)
[2021-11-20] MEDS: *HR* FentaNYL (PF) 100 MCG/2 ML VIAL IVP PRN ×3 (02:03→12:12)
[2021-11-20 08:28] VITALS: BP 97/56; PULSE 97; TEMP 97.5; O2SAT 88
[2021-11-20] MEDS ORDERED: *HR* LORazepam 2 MG/ML VIAL IVP PRN (09:33)
[2021-11-20] MEDS: *HR* LORazepam Oral Conc 2 MG/ML SL SCH ×2 (10:54→15:14)
[2021-11-22 11:46] LABS: Immunoglobulin A 233 mg/dL (68-408); Immunoglobulin G 545 mg/dL (768-1632); Immunoglobulin M 27 mg/dL (35-263)
== END 2021-11-20 15:22 | disposition hospice, inpatient (51) | DRG 884 ==
LOC: 3NENU 11:06 → EMEROOARM 11:06 → SUATTDRO 16:43 → 3NENU 17:54 → SUATTDRO 11-04 14:56 → ICNU 11-15 19:52 → 3NENU 11-17 13:51 → 2ANU 11-19 17:09
PROVIDERS: ADMIT Internal Medicine; ATTEND Internal Medicine

== ENCOUNTER 2021-11-20 11:33 | Inpatient (IN) ==
[2021-11-20] MEDS ORDERED: Ipratropium/Albuterol Neb 3 ML IH PRN (12:11)
[2021-11-20] MEDS ORDERED: Haloperidol Lactate 5 MG/ML VIAL IVP PRN (12:23)
[2021-11-20] MEDS ORDERED: Ondansetron ODT 4 MG TAB.RAPDIS SL PRN (12:31)
[2021-11-20] MEDS ORDERED: Haloperidol Oral Conc 10 MG/5 ML UDC PO PRN (12:36)
[2021-11-20] MEDS ORDERED: *HR* LORazepam 2 MG/ML VIAL IVP PRN (12:40)
[2021-11-20] MEDS: *HR* LORazepam Oral Conc 2 MG/ML SL SCH ×4 (16:20→23:38)
[2021-11-20] MEDS: *HR* FentaNYL (PF) 100 MCG/2 ML VIAL IVP PRN ×3 (16:53→21:49)
[2021-11-20] MEDS: Atropine 1% Opth Drops 100 DROP/5 ML BOTTLE SL PRN (20:12)
[2021-11-20 22:59] VITALS: BP 98/63; PULSE 99; TEMP 98; O2SAT 87
[2021-11-21] MEDS: *HR* FentaNYL (PF) 100 MCG/2 ML VIAL IVP PRN (02:41)
[2021-11-21] MEDS: *HR* LORazepam Oral Conc 2 MG/ML SL SCH ×2 (02:41→02:43)
[2021-11-21] MEDS: Atropine 1% Opth Drops 100 DROP/5 ML BOTTLE SL PRN (02:45)
== END 2021-11-21 04:25 | disposition expired | DRG 951 ==
LOC: 2ANU 15:23
PROVIDERS: ADMIT Internal Medicine Hospice and Palliative Medicine; ATTEND Internal Medicine Hospice and Palliative Medicine